=== PATIENT | male | born 1995 | race Caucasian/White ===

== ENCOUNTER 2019-12-28 08:07 | Emergency (ER) | payer OTHER ==
[~2019-12-28] VITALS: Ht 175.3 cm; Wt 63.5 kg
[2019-12-28] MEDS ORDERED: BACTRIM DS TAB1 EAC1 PO (08:22)
[2019-12-28] MEDS ORDERED: NORCO 5-325 TA1 EAC2 PO (08:46)
[2019-12-28] MEDS ORDERED: KEFLEX500 M1 PO (08:46)
[2019-12-28 09:26] LABS: HEMATOCRIT 46.6 % (42.0-52.0); HEMOGLOBIN 15.6 gm/dL (14.0-18.0); MCH 28.9 pg (26.0-34.0); MCHC 33.4 g/dL (28.0-37.0); MCV 86.6 fL (80.0-100.0); NUCLEATED RBCS 0 /100WBC; PLATELET COUNT* 214 thou/uL (150-400); RBC 5.38 mil/uL (4.50-6.00); RDW-CV 12.8 % (10.5-14.5); WBC 12.7 thou/uL (4.0-11.0)
[2019-12-28 09:34] LABS: CALCIUM 9.3 mg/dL (8.5-10.1); CREATININE 1.2 mg/dL (0.6-1.3); POTASSIUM 3.7 mmol/L (3.5-5.1)
[2019-12-28 10:09] LABS: ABSOLUTE EOSINOPHILS 0.1 thou/uL (0.0-0.7); ABSOLUTE LYMPHOCYTES 1.4 thou/uL (0.8-5.3); ABSOLUTE NEUTROPHILS 11.2 thou/uL (1.6-8.1); ATYPICAL LYMPHS 3 %; PLATELET ESTIMATE ADEQUATE
[2019-12-28 11:21] VITALS: BP 115/58
== END 2019-12-28 11:22 | disposition home or self-care (01) ==
LOC: M.ERS 08:07
PROVIDERS: Family Medicine
DX: L03.116 Cellulitis of left lower limb (principal); Z88.1 Allergy status to other antibiotic agents

== ENCOUNTER 2020-08-04 15:21 | Emergency (ER) | payer OTHER ==
[~2020-08-04] VITALS: Ht 175.3 cm; Wt 63.5 kg
[~2020-08-04 15:21] MED LIST: BACTRIM DS TAB1 EAC1 PO; KEFLEX500 M1 PO; NORCO 5-325 TA1 EAC2 PO
[2020-08-04] MEDS ORDERED: DOXYCYCLINE 10100 MG PO ×2 (17:31→17:33)
[2020-08-04 17:44] VITALS: BP 118/68
[2020-08-07 07:06] LABS: HBsAG-EMPLOYEE EXPOSURE Negative (Negative)
== END 2020-08-04 17:45 | disposition home or self-care (01) ==
LOC: M.ERS 15:21
PROVIDERS: Physician Assistant
DX: L02.416 Cutaneous abscess of left lower limb (principal); J45.909 Unspecified asthma, uncomplicated; Z88.1 Allergy status to other antibiotic agents